=== PATIENT | female | born 1960 | race Asian ===

== ENCOUNTER 2020-12-31 10:06 | Emergency (ER) | payer OTHER ==
[~2020-12-31] VITALS: Ht 165.1 cm; Wt 54.4 kg
[2020-12-31 10:06] VITALS: BP_SYST 114
--- NOTE | 2020-12-31 10:11 | NUR ---
BROUGHT BACK TO BED #7 AND TRIAGED. REPORT GIVEN TO ARSEN
--- NOTE | 2020-12-31 10:15 | NUR ---
PT AMBULATES TO BATHROOM TO PROVIDE URINE SAMPLE
--- NOTE | 2020-12-31 10:18 | NUR ---
ER DR. FISHER AT THE BEDSIDE EXAMINING PT
--- NOTE | 2020-12-31 10:27 | NUR ---
# 20 gauge angiocath placed to RAC. Use of asceptic technique. Opsite placed over site. Blood return noted. Blood for lab drawn from site. Flushed with 10 cc of normal saline. No evidence of infiltration noted. Patient tolerated well.
[2020-12-31] MEDS ORDERED: HYDROcodone/ACETAMIN 5-325 MG TAB (NORCO/ VICODIN) PO ONE (10:30)
[2020-12-31 11:01] LABS: BASOPHILS % (AUTO) 0.9 % (0.0-2.0); EOSINOPHILS # (AUTO) 0.2 K/uL (0.0-0.4); EOSINOPHILS % (AUTO) 3.5 % (0.0-4.0); HEMATOCRIT 37.8 % (36-48); HEMOGLOBIN 12.7 g/dL (12.0-16.0); LYMPHOCYTES # (AUTO) 1.8 K/uL (1.0-5.5); LYMPHOCYTES % (AUTO) 38.1 % (20.5-51.5); MEAN CORPUSCULAR HEMOGLOBIN 29 pg (27-31); MEAN CORPUSCULAR HGB CONC 34 % (32-36); MEAN CORPUSCULAR VOLUME 87 fL (79.0-98.0); MONOCYTES # (AUTO) 0.3 K/uL (0.0-1.0); MONOCYTES % (AUTO) 6.5 % (1.7-9.3); NEUTROPHILS # (AUTO) 2.4 K/uL (1.8-7.7); PLATELET COUNT (AUTO) 184 K/uL (130-430); RED BLOOD CELL COUNT(AUTO) 4.34 MIL/uL (4.2-6.2); RED CELL DISTRIBUTION WIDTH 13.4 % (9.0-15.0); WHITE BLOOD COUNT (AUTO) 4.6 K/uL (4.8-10.8)
[2020-12-31 11:15] LABS: BILIRUBIN,URINE NEGATIVE (NEGATIVE); CLARITY/URINE CLEAR (CLEAR); COLOR,URINE YELLOW (YELLOW); GLUCOSE,URINE NEGATIVE (NEGATIVE); KETONES,URINE NEGATIVE (NEGATIVE); LEUKOCYTE ESTERASE ,URINE NEGATIVE (NEGATIVE); NITRITE, URINE NEGATIVE (NEGATIVE); PH,URINE 5.5 (5.0-8.0); PROTEIN URINE NEGATIVE (NEGATIVE); UROBILINOGEN,URINE 0.2 (0.2-1.0)
[2020-12-31 11:15] LABS: CALCIUM 8.7 mg/dL (8.4-11.0); CREATININE 0.73 mg/dL (0.55-1.30); POTASSIUM 3.3 mmol/L (3.5-5.1)
[2020-12-31 11:16] LABS: BLOOD, URINE TRACE (NEGATIVE)
[2020-12-31 11:21] LABS: ALBUMIN 3.7 g/dL (3.4-4.8); BILIRUBIN,DIRECT 0.1 mg/dL (0.0-0.3); TOTAL BILIRUBIN 0.6 mg/dL (0.0-1.0)
[2020-12-31 11:42] LABS: BACTERIA,URINE RARE /HPF (None Seen); WBC,URINE NONE SEEN /HPF (0-3)
--- NOTE | 2020-12-31 11:45 | NUR ---
Patient transported to radiology via WC, accompanied by STAFF.
--- NOTE | 2020-12-31 13:19 | NUR ---
ULTRASOUND AT THE BEDSIDE
[2020-12-31 14:06] VITALS: BP_SYST 114
== END 2020-12-31 14:07 | disposition home or self-care (01) ==
LOC: SED 10:06
DX: R10.32 Left lower quadrant pain (principal)
CPT/HCPCS: 36415; 74177; 76376; 76830; 76857; 80048; 80076; 81000; 83690; 85025; 87086; 99285; Q9967